=== PATIENT | female | born 1990 | race Caucasian/White ===

== ENCOUNTER 2017-11-15 10:17 | Outpatient (CLI) | payer OTHER ==
--- NOTE | 2017-11-15 11:47 | ULT ---
RIGHT UPPER QUADRANT ABDOMINAL ULTRASOUND: HISTORY: Right upper quadrant abdominal pain. TECHNIQUE: Multiplanar mccormick-scale and color Doppler images were obtained in a right upper quadrant abdominal ult rasound. FINDINGS: The liver is normal in echogenicity without focal lesions or intrahepatic ductal dilatation. The gal lbladder is normal without stones, sludge, gallbladder wall thickening, or pericholecystic fluid. Th e common bile duct is normal, measuring 2 mm. The visualized portions of the pancreas are unremarkable. The right kidney is normal in echogenicity without hydronephrosis or calculus and measures 10.5 cm in length. IMPRESSION: Unremarkable exam. POS: [facility]
== END 2017-11-15 10:18 | disposition home or self-care (01) ==
LOC: ULT 10:17
PROVIDERS: ATTEND Specialist
DX: R10.9 Unspecified abdominal pain (principal)
CPT/HCPCS: 36415; 76705; 80053; 81001; 83690; 85025

== ENCOUNTER 2017-12-15 08:32 | Outpatient (CLI) | payer OTHER | END 2017-12-15 08:33 | disposition home or self-care (01) | LOC: BICULT 08:32 | PROVIDERS: ATTEND Family Medicine | DX: N63.0 Unspecified lump in unspecified breast (principal) ==

== ENCOUNTER 2018-12-22 13:14 | Outpatient (CLI) | payer OTHER ==
--- NOTE | 2018-12-22 14:18 | ULT ---
US Abdominal History: [Abdominal pain] Comparison: Ultrasound gallbladder November 2017 Findings: Real-time grayscale and color evaluation of the abdomen was performed along with spectral a nalysis. Visualized portion of the aorta, IVC, and pancreas are unremarkable. Liver is normal. Common bile jeanie t is normal as well as the gallbladder. Portal vein is patent with antegrade flow. No cholelithiasis. Right kidney measures 11.6 x 4.9 x 5 cm and the left kidney measures 10.5 x 5.7 x 5.6 cm without mass, hydronephrosis, or abnormal calcifications. Spleen measures 9.7 cm in length. Impression: Unremarkable examination of the abdomen. No cholelithiasis or other acute pathology.
== END 2018-12-22 13:15 | disposition home or self-care (01) ==
LOC: BICULT 13:14
PROVIDERS: ATTEND Physician Assistant
DX: R10.10 Upper abdominal pain, unspecified (principal)
CPT/HCPCS: 36415; 76700; 80053; 82150; 85025

== ENCOUNTER 2019-10-09 08:45 | Outpatient (CLI) | payer OTHER ==
--- NOTE | 2019-10-09 09:40 | MMO ---
Bilateral MAMMO Bilat Screen [facility]. CLINICAL HISTORY: Patient is 29 years old and is seen for screening. The patient has the following family history of breast cancer: mother, at age 39. The patient has no personal history of cancer. VIEWS: The views performed were: bilateral craniocaudal with tomosynthesis; bilateral mediolateral oblique; and bilateral mediolateral oblique with tomosynthesis. FILMS COMPARED: The present examination has been compared to a prior imaging study performed at [facility] on 12/14/2010. This study has been interpreted with the assistance of computer-aided detection. MAMMOGRAM FINDINGS: There are scattered fibroglandular densities. There are no suspicious masses, suspicious calcifications, or new areas of architectural distortion. IMPRESSION: THERE IS NO MAMMOGRAPHIC EVIDENCE OF MALIGNANCY. A ROUTINE FOLLOW-UP MAMMOGRAM AT AGE 38 IS RECOMMENDED. THE RESULTS OF THIS EXAM WERE SENT TO THE PATIENT. ACR BI-RADS Category 1 - Negative MAMMOGRAPHY NOTE: 1. A negative mammogram report should not delay a biopsy if a dominant of clinically suspicious mass is present. 2. Approximately 10% to 15% of breast cancers are not detected by mammography. 3. Adenosis and dense breasts may obscure an underlying neoplasm. Reported by: SHAHNAZ HERNANDEZ MD Electonically Signed: [id number]
== END 2019-10-09 08:46 | disposition home or self-care (01) ==
LOC: BICMAMMO 08:45
PROVIDERS: ATTEND Family Medicine
DX: Z12.31 Encounter for screening mammogram for malignant neoplasm of breast (principal); Z80.3 Family history of malignant neoplasm of breast
CPT/HCPCS: 77063; 77067